=== PATIENT | female | born 1990 | race Two or more races ===

== ENCOUNTER 2018-01-17 15:58 | Emergency (ER) | payer SELFPAY ==
[~2018-01-17] VITALS: Ht 167.6 cm; Wt 105.0 kg
[2018-01-17] MEDS ORDERED: KETOROLAC 60MG/2ML VIAL IM ONE (21:00)
[2018-01-17] MEDS ORDERED: ACETAMINOPHEN WITH CODEINE 300/30MG TABLET PO ONE (23:00)
[2018-01-17 23:19] VITALS: BP 141/85
== END 2018-01-17 23:28 | disposition home or self-care (01) ==
LOC: ER 15:58
DX: L03.111 Cellulitis of right axilla (principal)
CPT/HCPCS: 96372; 99283; J1885